=== PATIENT | female | born 1990 | race Caucasian/White ===

== ENCOUNTER 2018-12-21 19:36 | Emergency (ER) | payer OTHER ==
[~2018-12-21] VITALS: Ht 165.1 cm; Wt 86.2 kg
[2018-12-21 20:31] LABS: URINE BILIRUBIN NEGATIVE (Negative); URINE BLOOD NEGATIVE (Negative); URINE CLARITY CLEAR; URINE COLOR YELLOW; URINE GLUCOSE-RANDOM* NEGATIVE (Negative); URINE KETONES 3+ (Negative); URINE LEUKOCYTES-REFLEX NEGATIVE (Negative); URINE NITRITE-REFLEX NEGATIVE (Negative); URINE PROTEIN (DIPSTICK) TRACE (Negative); URINE SPECIFIC GRAVITY 1.015 (1.005-1.035); URINE UROBILINOGEN 0.2 E.U./dl (0.2-1.0)
[2018-12-21 20:39] LABS: ABSOLUTE NEUTROPHILS 9.4 thou/uL (1.4-8.2); BASOPHILS 0.5 % (0.0-2.0); EOSINOPHILS 0.9 % (0.0-3.0); HEMATOCRIT 41.4 % (37.0-47.0); HEMOGLOBIN 14.2 gm/dL (12.0-15.0); LYMPHOCYTES 14.4 % (24.0-44.0); MCH 29.7 pg (26.0-34.0); MCHC 34.3 g/dL (28.0-37.0); MCV 86.7 fL (80.0-100.0); MONOCYTES 6.6 % (1.0-8.0); PLATELET COUNT 260 thou/uL (150-400); POLYS 77.6 % (36.0-66.0); RBC 4.77 mil/uL (4.20-5.00); RDW 13.4 % (10.5-14.5); WBC 12.1 thou/uL (4.0-11.0)
[2018-12-21 20:47] LABS: CALCIUM 8.9 mg/dL (8.5-10.1); CREATININE 0.8 mg/dL (0.6-1.0)
[2018-12-21 20:52] LABS: ALBUMIN 3.7 g/dL (3.4-5.0); TOTAL BILIRUBIN 0.6 mg/dL (<0.1-1.0); TOTAL PROTEIN 7.4 g/dL (6.4-8.2)
[2018-12-21] MEDS ORDERED: ONDANSETRON HCL4 M2 PO (21:57)
[2018-12-21] MEDS ORDERED: PHENERGAN12.5 M2 RECTAL (22:06)
[2018-12-21 23:25] VITALS: BP 115/88
== END 2018-12-21 23:26 | disposition home or self-care (01) ==
LOC: ER 19:36
PROVIDERS: Nurse Practitioner Family
DX: E87.6 Hypokalemia (principal); R10.9 Unspecified abdominal pain; R11.2 Nausea with vomiting, unspecified; J45.909 Unspecified asthma, uncomplicated; F17.210 Nicotine dependence, cigarettes, uncomplicated; Z88.1 Allergy status to other antibiotic agents